=== PATIENT | female | born 1970 | race Caucasian/White ===

== ENCOUNTER 2016-12-02 07:07 | Day surgery (SDC) | payer OTHER ==
[~2016-12-02] VITALS: Ht 157.5 cm; Wt 51.7 kg
[~2016-12-02 07:07] MED LIST: BUPROBAN150 MG PO; CLONAZEPAM0.5 MG PO; CYMBALTA20 MG PO; GABAPENTIN100 MG PO; LEVO-T50 MCG PO; MAXALT10 MG PO; NORTRIPTYLINE H50 MG PO; PETADOLEX 7575 MG PO; PROMETHAZINE HC25 M1 PO; SPRIX1 EACH BOTH NARES; TIROSINT100 MCG PO; TORADOL10 MG PO; TRAZODONE HCL50 MG PO; VALIUM5 MG PO; VICODIN HP 10-1 EACH PO; ZOFRAN ODT4 MG PO; ZONISAMIDE100 MG PO
[2016-12-02] MEDS ORDERED: LORTAB 10-3251 EACH PO (07:39)
[2016-12-02 07:40] VITALS: BP 113/53
[2016-12-02 10:35] VITALS: BP 122/54
[2016-12-02 11:23] VITALS: BP 146/73
== END 2016-12-02 11:25 | disposition home or self-care (01) ==
LOC: SDC 07:07
DX: N92.1 Excessive and frequent menstruation with irregular cycle (principal); N84.0 Polyp of corpus uteri; E03.9 Hypothyroidism, unspecified; K21.9 Gastro-esophageal reflux disease without esophagitis; Z87.891 Personal history of nicotine dependence
CPT/HCPCS: 88305; J1100; J1885; J2250; J2405; J3010

== ENCOUNTER 2017-08-30 07:30 | Emergency (ER) | payer OTHER ==
[~2017-08-30] VITALS: Ht 157.5 cm; Wt 49.9 kg
[~2017-08-30 07:30] MED LIST changes: +LORTAB 10-3251 EACH PO
[2017-08-30 12:34] VITALS: BP 113/72
== END 2017-08-30 12:35 | disposition home or self-care (01) ==
LOC: EME 07:30
DX: G43.909 Migraine, unspecified, not intractable, without status migrainosus (principal); E78.5 Hyperlipidemia, unspecified; F41.9 Anxiety disorder, unspecified; Z88.8 Allergy status to other drugs, medicaments and biological substances; Z87.891 Personal history of nicotine dependence
CPT/HCPCS: 99281; 99285; J1200; J1885; J2765; J7030

== ENCOUNTER 2018-01-09 18:48 | Observation (INO) | payer OTHER ==
[~2018-01-09] VITALS: Ht 158.8 cm; Wt 52.9 kg
[2018-01-09 23:10] LABS: HEMATOCRIT 33.9 % (36.0-46.0); HEMOGLOBIN 11.6 G/DL (11.9-15.5); MCH 30.4 PG (29.0-34.0); MCHC 34.2 G/DL (30.0-36.0); PLATELET COUNT 294 K/uL (156-360); RBC DIS.WIDTH-CV 12.2 % (11.8-14.6); RBC DIS.WIDTH-SD 39.9 % (39-53); RED BLOOD COUNT 3.81 M/uL (3.80-5.20); WHITE BLOOD COUNT 7.8 K/uL (4.1-10.2)
[2018-01-09] MEDS ORDERED: BENADRYL25 MG PO (23:19)
[2018-01-09] MEDS ORDERED: EXCEDRIN MIGRA1 EAC3 PO (23:19)
[2018-01-09 23:20] LABS: CHLORIDE 105 mEq/L (99-109); POTASSIUM 3.8 mEq/L (3.7-5.4); SODIUM 138 mEq/L (136-147)
[2018-01-09] MEDS ORDERED: [UNRECOGNIZED DRUG - OTHER] TP (23:21)
[2018-01-09 23:22] LABS: GLUCOSE 132 mg/dL (70-99)
[2018-01-09] MEDS ORDERED: TUMS500 MG PO (23:22)
[2018-01-09 23:26] LABS: CREATININE 1.2 mg/dL (0.6-1.3); GFR ESTIMATE (CALCULATED) 51 mL/min/; UREA NITROGEN (BUN) 16 mg/dL (9-23)
[2018-01-09 23:34] LABS: QUANTITATIVE HCG < 4.0 MIU/ML
[2018-01-09 23:58] LABS: ERTH.SED.RATE 5 MM/HR (0-20)
[2018-01-10 00:51] LABS: C-REACTIVE PROTEIN < 1.0 MG/L (0-10)
[2018-01-10 02:53] VITALS: BP 108/57
[2018-01-10 07:21] VITALS: BP 107/57
[2018-01-10] MEDS ORDERED: LORTAB 10-3251 EACH PO (10:49)
[2018-01-10] MEDS ORDERED: MEDROL DOSEPAK4 MG PO (10:57)
[2018-01-10 11:06] VITALS: BP 105/55
== END 2018-01-10 11:53 | disposition home or self-care (01) ==
LOC: EME 18:48 → EDOF 01-10 01:47 → ENRESERV 01-10 01:48 → 5WEST 01-10 02:50 → ENPENDDIS 01-10 11:11 → 5WEST 01-10 11:53
PROVIDERS: Physician Assistant
DX: G43.919 Migraine, unspecified, intractable, without status migrainosus (principal); E11.9 Type 2 diabetes mellitus without complications; E03.9 Hypothyroidism, unspecified; Z79.82 Long term (current) use of aspirin; K21.9 Gastro-esophageal reflux disease without esophagitis; F41.9 Anxiety disorder, unspecified; E78.5 Hyperlipidemia, unspecified; Z83.3 Family history of diabetes mellitus
CPT/HCPCS: 70450; 80048; 84702; 85027; 85652; 86140; 99281; 99285; G0378; J1100; J1885; J2270; J2765; J2930